=== PATIENT | female | born 1970 | race Caucasian/White ===

== ENCOUNTER 2018-02-07 12:59 | Inpatient (IN) | payer OTHER ==
[2018-02-07] MEDS ORDERED: SODIUM CHLORIDE 1,000 ML IV STA (14:02)
[2018-02-07] MEDS ORDERED: ONDANSETRON 4 MG/2 ML VIAL IVPUSH ONE (14:02)
--- NOTE | 2018-02-07 14:04 | PDOC ---
History of Present Illness - General Chief Complaint: Pain Stated Complaint: ABD PAIN Time Seen by Provider: 02/07/18 13:44 - History of Present Illness Initial Comments: 02/07/18 14:31 The patient is a 47 year old female with a history of GERD s/p cholecystecomy who presents for evaluation of abdominal pain. The patient reports a 2 day history of worsening RLQ throbbing abdominal pain prompting her presentation to the ED for evaluation. She notes some associated nausea, but denies any vomiting. She notes that her LMP was 01/26/18. She denies similar symptoms in the past and otherwise denies fevers, chills, SOB, chest pain, vomiting, vaginal bleeding, vaginal discharge, or changes with urination or bowel movements. Past History - Past Medical History Allergies/Adverse Reactions: Allergies Allergy/AdvReac Type Severity Reaction Status Date / Time No Known Allergies Allergy Verified 02/07/18 13:17 Home Medications: Ambulatory Orders Omeprazole 20 mg PO DAILY 02/07/18 COPD: No - Surgical History Cholecystectomy: Yes - Suicide/Smoking/Psychosocial Hx Smoking History: Smoker current status UNK Information on smoking cessation initiated: No Hx Alcohol Use: No Drug/Substance Use Hx: No Substance Use Type: None Review of Systems - Review of Systems Comments:: 02/07/18 14:33 Constitutional: No fevers, chills, fatigue, malaise HEENT: No Rhinorrhea, nasal congestion, visual changes Cardiovascular: No chest pain, syncope, palpitations, lightheadedness Respiratory: No Cough, SOB, Hemoptysis, Gastrointestinal: Abdominal pain, Nausea. No Vomiting, Constipation, Diarrhea, Melena Genitourinary: No Dysuria, Frequency, Urgency, Hesitancy, Hematuria, Flank pain Musculoskeletal: No Myalgia, arthralgia Skin: No rashes, itching, bruising, pallor Neurologic: No Headache, Dizziness, Numbness, Weakness, or Tingling Psychiatric: No Hallucinations. No SI or HI *Physical Exam - Vital Signs Last Vital Signs Temp Pulse Resp BP Pulse Ox 98 F 73 18 108/73 99 02/07/18 13:15 02/07/18 13:15 02/07/18 13:15 02/07/18 13:15 02/07/18 13:15 - Physical Exam Comments: 02/07/18 14:34 General Appearance: Nourished. No Apparent Distress HEENT: EOMI, PAULA. No Pharyngeal Erythema, Tonsillar Exudate, Tonsillar Erythema Neck: No Cervical Lymphadenopathy Respiratory/Chest: Lungs Clear, Normal Breath Sounds. No Crackles, Rales, Rhonchi, Wheezing Cardiovascular: Regular Rhythm, Regular Rate. No Murmur, Gallops, Rubs Gastrointestinal/Abdominal: Normal Bowel Sounds, Soft. Tenderness to palpation of the right lower quadrant. No Guarding, Rebound, Musculoskeletal: No CVA Tenderness Extremity: Normal Capillary Refill Integumentary: Normal Color, Dry, Warm Neurologic: Fully Oriented, Alert, Normal Mood/Affect, Normal Response, ED Treatment Course - LABORATORY CBC & Chemistry Diagram: 02/09/18 06:30 02/09/18 06:30 Medical Decision Making - Medical Decision Making 02/07/18 14:34 The patient is a 47 year old female with a history of GERD s/p cholecystecomy who presents for evaluation of abdominal pain. Differential includes but is not limited to: UTI, Pyelonephritis, Appendicitis, Gastroenteritis, infectious, metabolic derangement. Given the patient's history and physical exam, we will obtain a cbc, cmp, lipase, ua, urine cultures, and ct abdomen/pelvis to evaluate for possible etiologies. We will treat with iv fluids and zofran in the meantime and continue to monitor and reassess. 02/07/18 19:28 CBC, cmp, ua are unremarkable. CT abdomen pelvis demonstrates dilation in the common bile duct to 13mm as read by our radiologist. We discussed the case with GI with one of Dr. Fung's partner's who states that given the patient' s clinical presentation and continued pain, it is possible the patient has a choledocholethiasis and requires MRCP/ERCP for further evaluation and should be monitored in the hospital. We discussed the plan with the patient who agrees with admission. 02/07/18 19:49 We discussed the case with the hospitalist team who accepted the patient for admission. *DC/Admit/Observation/Transfer Diagnosis at time of Disposition: Choledocholithiasis - Discharge Dispostion Condition at time of disposition: Stable Admit: Yes - Referrals - Patient Instructions - Post Discharge Activity
[2018-02-07] MEDS ORDERED: ONDANSETRON 4 MG/2 ML VIAL ONE (14:25)
[2018-02-07 14:27] LABS: URINE APPEARANCE CLEAR; URINE BILIRUBIN NEGATIVE (<2.0 mg/dL); URINE BLOOD NEGATIVE (NEGATIVE); URINE COLOR LTYELLOW; URINE GLUCOSE (UA) NEGATIVE (NEGATIVE); URINE KETONE NEGATIVE (NEGATIVE); URINE LEUK ESTERASE NEGATIVE (NEGATIVE); URINE NITRITE NEGATIVE (NEGATIVE); URINE PROTEIN NEGATIVE (NEGATIVE); URINE UROBILINOGEN NEGATIVE mg/dL (0.2-1.0)
[2018-02-07] MEDS ORDERED: morphine CARPU-JECT 4 MG/1 ML DISP.SYRIN IVPUSH ONE ×3 (14:41→20:05)
[2018-02-07] MEDS ORDERED: MORPHINE SULFATE 10 MG/1 ML *VIAL ONE ×2 (14:46→15:55)
[2018-02-07 15:08] LABS: BASO % 0.4 % (0-2.0); EOS % 1.2 % (0-4.5); HEMATOCRIT 36.4 % (32.4-45.2); HEMOGLOBIN 12.4 GM/dL (10.7-15.3); LYMPH % 30.2 % (8-40); MCH 29.4 pg (25.7-33.7); MCHC 34.2 g/dl (32.0-36.0); MEAN PLT VOLUME 8.5 fl (7.5-11.1); MONO % 8.6 % (3.8-10.2); NEUT % 59.6 % (42.8-82.8); PLATELET COUNT 304 K/MM3 (134-434); RBC 4.23 M/mm3 (3.60-5.2); RDW 13.3 % (11.6-15.6)
--- NOTE | 2018-02-07 15:36 | PDOC ---
Attending Attestation - Resident Resident Name: JessicaGerhard - ED Attending Attestation I have performed the following: I have examined & evaluated the patient, The case was reviewed & discussed with the resident, I agree w/resident's findings & plan, Exceptions are as noted - HPI HPI: 02/07/18 15:40 47-year-old female with past medical history of cholecystectomy, gastritis presents with right lower quadrant pain for 2 days. Patient reports feeling tactile fevers, nausea and right lower quadrant pain. Denies vaginal bleeding. Denies dysuria. - Physicial Exam PE: 02/07/18 15:42 GENERAL: Awake, alert, and fully oriented, in no acute distress. HEAD: No signs of trauma EYES: PERRLA, EOMI, sclera anicteric, conjunctiva clear ENT: Auricles normal inspection, hearing grossly normal, nares patent NECK: Normal ROM, supple ABDOMEN: Soft. TTP RLQ. Positive McBurney's No guarding, no rebound. No masses EXTREMITIES: Normal range of motion, no edema. NEUROLOGICAL: Cranial nerves II through XII grossly intact. Normal speech, SKIN: Warm, Dry, normal turgor, no rashes or lesions noted. - Medical Decision Making 02/07/18 15:41 Vital Signs Temp Pulse Resp BP Pulse Ox 98 F 73 18 108/73 99 02/07/18 13:15 02/07/18 13:15 02/07/18 13:15 02/07/18 13:15 02/07/18 13:15 I suspect the patient will need to rule out for appendicitis. Labs, urinalysis, pain control and CAT scan abdomen pelvis. 02/07/18 18:09 CBC, BMP 02/07/18 14:30 02/07/18 14:30 CMP Sodium 140 mmol/L (136-145) 02/07/18 14:30 Potassium 4.2 mmol/L (3.5-5.1) 02/07/18 14:30 Chloride 106 mmol/L (98-107) 02/07/18 14:30 Carbon Dioxide 29 mmol/L (21-32) 02/07/18 14:30 Anion Gap 5 (8-16) L 02/07/18 14:30 BUN 14 mg/dL (7-18) 02/07/18 14:30 Creatinine 0.6 mg/dL (0.55-1.02) 02/07/18 14:30 Creat Clearance w eGFR > 60 (>60) 02/07/18 14:30 Random Glucose 96 mg/dL (74-106) 02/07/18 14:30 Calcium 8.7 mg/dL (8.5-10.1) 02/07/18 14:30 Total Bilirubin 0.2 mg/dL (0.2-1.0) 02/07/18 14:30 AST 21 U/L (15-37) 02/07/18 14:30 ALT 50 U/L (12-78) 02/07/18 14:30 Alkaline Phosphatase 101 U/L (45-117) 02/07/18 14:30 Total Protein 7.6 g/dl (6.4-8.2) 02/07/18 14:30 Albumin 3.5 g/dl (3.4-5.0) 02/07/18 14:30 Lipase 145 U/L (73-393) 02/07/18 14:30 Urine Test Results Urine Color Ltyellow 02/07/18 14:11 Urine Appearance Clear 02/07/18 14:11 Urine pH 7.0 (5.0-8.0) 02/07/18 14:11 Ur Specific [place] 1.015 (1.001-1.035) 02/07/18 14:11 Urine Protein Negative (NEGATIVE) 02/07/18 14:11 Urine Glucose (UA) Negative (NEGATIVE) 02/07/18 14:11 Urine Ketones Negative (NEGATIVE) 02/07/18 14:11 Urine Blood Negative (NEGATIVE) 02/07/18 14:11 Urine Nitrite Negative (NEGATIVE) 02/07/18 14:11 Urine Bilirubin Negative (<2.0 mg/dL) 02/07/18 14:11 Ur Leukocyte Esterase Negative (NEGATIVE) 02/07/18 14:11 CT scan demonstrates dilitation of the CBD. Will need to consult GI regarding these findings. Given lower abdominal pain, will obtain transvaginal ultrasound, pain control and reassess. Dr. Lopez had spoken with a GI physician, who recommends further evaluation for CBD dilitation.
[2018-02-07 16:04] LABS: ALBUMIN 3.5 g/dl (3.4-5.0); ALK PHOS 101 U/L (45-117); ANION GAP 5 (8-16); BILIRUBIN,TOTAL 0.2 mg/dL (0.2-1.0); BLOOD UREA NITROGEN 14 mg/dL (7-18); CALCIUM 8.7 mg/dL (8.5-10.1); CHLORIDE 106 mmol/L (98-107); CO2 29 mmol/L (21-32); CREATININE 0.6 mg/dL (0.55-1.02); GLUCOSE,RANDOM 96 mg/dL (74-106); LIPASE 145 U/L (73-393); POTASSIUM 4.2 mmol/L (3.5-5.1); SGOT/AST 21 U/L (15-37); SGPT/ALT 50 U/L (12-78); SODIUM 140 mmol/L (136-145); TOT PROT 7.6 g/dl (6.4-8.2)
[2018-02-07] MEDS ORDERED: morphine SULFATE 4 MG/ML VIAL ONE (20:06)
[2018-02-07] MEDS ORDERED: morphine SULFATE 4 MG/ML VIAL IVPUSH PRN ×2 (21:14→22:05)
[2018-02-07] MEDS ORDERED: ONDANSETRON 4 MG/2 ML VIAL IVPUSH PRN (21:19)
--- NOTE | 2018-02-07 21:33 | HP ---
CHIEF COMPLAINT: Abdominal Pain PCP: None HISTORY OF PRESENT ILLNESS: 47yo obese Slovak speaking F with PMhx of cholecystectomy +20yrs ago who presents with 1 day of constant abdominal pain. The pain started in the RLQ but has now migrated to the RUQ. She attests to months of post-prandial colicky RUQ pain but thought it was GERD, but now the pain is constant. Assoc w/ nausea, vomiting. She denies fevers, chills, CP, SOB, jaundice. Denies diarrhea, constipation. In the ER, the patient was afebrile, VSS. CT abdomen shows dilated CBD 1.3cm. Labs were essentially wnl, no leukocytosis and no transaminitis or hyperbili. Lipase was negative. She received morphine and zofran with mild relief. Recent Travel: Denies PAST MEDICAL HISTORY: GERD PAST SURGICAL HISTORY: Cholecystectomy Social History: Smoking: Denies Alcohol: Denies Drugs: Denies Allergies: No Known Allergies Allergy (Verified 02/07/18 13:17) HOME MEDICATIONS: Home Medications Medication Instructions Recorded Omeprazole 20 mg PO DAILY 02/07/18 REVIEW OF SYSTEMS CONSTITUTIONAL: Absent: fever, chills, diaphoresis, generalized weakness, malaise, loss of appetite, weight change HEENT: Absent: rhinorrhea, nasal congestion, throat pain, throat swelling, difficulty swallowing, mouth swelling, ear pain, eye pain, visual changes CARDIOVASCULAR: Absent: chest pain, syncope, palpitations, irregular heart rate , lightheadedness, peripheral edema RESPIRATORY: Absent: cough, shortness of breath, dyspnea with exertion, orthopnea, wheezing, stridor, hemoptysis GASTROINTESTINAL: +abdominal pain, +abdominal distension, +nausea. Absent: diarrhea, constipation, melena, hematochezia GENITOURINARY: Absent: dysuria, frequency, urgency, hesitancy, hematuria, flank pain, genital pain MUSCULOSKELETAL: Absent: myalgia, arthralgia, joint swelling, back pain, neck pain SKIN: Absent: rash, itching, pallor HEMATOLOGIC/IMMUNOLOGIC: Absent: easy bleeding, easy bruising, lymphadenopathy, frequent infections ENDOCRINE:Absent: unexplained weight gain, unexplained weight loss, heat intolerance, cold intolerance NEUROLOGIC: Absent: headache, focal weakness or paresthesias, dizziness, unsteady gait, seizure, mental status changes, bladder or bowel incontinence PSYCHIATRIC: Absent: anxiety, depression, suicidal or homicidal ideation, hallucinations. PHYSICAL EXAMINATION Vital Signs Period Temp Pulse Resp BP Sys/Green Pulse Ox Last 24 Hr 97.5 F-98.2 F 72-79 17-18 103-136/64-86 98-99 GEN: AAOx3, in mild distress, lying down HEENT: PERRLA, EOMi, no scleral icterus CV: S1, S2, RRR LUNG: CTABL ABD: +Guarding, tender to palpation in RUQ, normoactive BS MSK: No edema, no erythema NEURO: CN 2-12 intact, no msk or sensation deficits ASSESSMENT/PLAN: 47yo obese Slovak speaking F with PMhx of cholecystectomy +20yrs ago who presents with 1 day of constant abd pain, found to have dilated CBD # RUQ Pain -- It is possible the patient has choledocholithiasis causing pain and dilated CBD. Although LFTs do not appear obstructive, suspicion is still high. Pancreatitis less likely as lipase is neg. GI (Dr Fung's team) was contacted in the ER and agree with admission and possible ERCP/MRCP. NPO after midnight. IVF. Pre-op labs ordered including T&S, Coag. Preop CXR and EKG. IV Morphine for pain and IV Zofran for nausea. Continue to monitor LFTs # GERD -- Continue PPI # FEN/PPX -- NPO, IVF. SCDs. PT ordered # Dispo -- Admit to med/surg Case d/w Dr Trammell & Dr Harrison Morning team to take over in AM Nathaniel Garzon MD - PGY1 [employer] Visit type - Emergency Visit Emergency Visit: Yes ED Registration Date: 02/07/18 Care time: The patient presented to the Emergency Department on the above date and was hospitalized for further evaluation of their emergent condition. - New Patient This patient is new to me today: Yes Date on this admission: 02/08/18 - Critical Care Critical Care patient: No Hospitalist Screening - Colonoscopy Questionnaire Colonoscopy Questionnaire: Colonoscopy Questionnaire - Patient: 50 - 75 years old and never had a screening colonoscopy: Unknown History of colon or rectal polyps, or CA: Unknown History of IBD, Crohn's disease or UC: Unknown History of abdominal radiation therapy as a child: Unknown - Relative: 1 with colon or rectal CA, or polyps at age 60 or younger: Unknown Colon or rectal CA diagnosed at age 45 or younger: Unknown Multiple relatives with colon or rectal CA: Unknown - Outcome: Screening Result: Negative Screen
--- NOTE | 2018-02-07 21:58 | PN ---
Teaching Attending Note Name of Resident: Nathaniel Garzon ATTENDING PHYSICIAN STATEMENT I saw and evaluated the patient. I reviewed the resident's note and discussed the case with the resident. I agree with the resident's findings and plan as documented. SUBJECTIVE: 47 yo f with pmhx. of GERD and choleycystectomy (25 years ago), who presents with abdominal pain located in the right upper quadrant. States pain started today and has had colicky pain for several weeks. No chest pain or pressure. No nausea currently. No vomiting or diarrhea. OBJECTIVE: Physical: VS: Vital Signs Period Temp Pulse Resp BP Sys/Green Pulse Ox Last 24 Hr 97.5 F-98.2 F 72-79 17-18 103-136/64-86 98-99 GEN: NAD, resting in bed, AA0x3 HEENT: NCAT, PERRL, Throat without erythema or exudates CARD: RRR S1, S2 RESP: CTAB ABD: BSx4, TTP RUQ EXT: - C/C/E CBCD WBC 7.0 K/mm3 (4.0-10.0) 02/07/18 14:30 RBC 4.23 M/mm3 (3.60-5.2) 02/07/18 14:30 Hgb 12.4 GM/dL (10.7-15.3) 02/07/18 14:30 Hct 36.4 % (32.4-45.2) 02/07/18 14:30 MCV 86.0 fl (80-96) 02/07/18 14:30 MCHC 34.2 g/dl (32.0-36.0) 02/07/18 14:30 RDW 13.3 % (11.6-15.6) 02/07/18 14:30 Plt Count 304 K/MM3 (134-434) 02/07/18 14:30 MPV 8.5 fl (7.5-11.1) 02/07/18 14:30 CMP Sodium 140 mmol/L (136-145) 02/07/18 14:30 Potassium 4.2 mmol/L (3.5-5.1) 02/07/18 14:30 Chloride 106 mmol/L (98-107) 02/07/18 14:30 Carbon Dioxide 29 mmol/L (21-32) 02/07/18 14:30 Anion Gap 5 (8-16) L 02/07/18 14:30 BUN 14 mg/dL (7-18) 02/07/18 14:30 Creatinine 0.6 mg/dL (0.55-1.02) 02/07/18 14:30 Creat Clearance w eGFR > 60 (>60) 02/07/18 14:30 Random Glucose 96 mg/dL (74-106) 02/07/18 14:30 Calcium 8.7 mg/dL (8.5-10.1) 02/07/18 14:30 Total Bilirubin 0.2 mg/dL (0.2-1.0) 02/07/18 14:30 AST 21 U/L (15-37) 02/07/18 14:30 ALT 50 U/L (12-78) 02/07/18 14:30 Alkaline Phosphatase 101 U/L (45-117) 02/07/18 14:30 Total Protein 7.6 g/dl (6.4-8.2) 02/07/18 14:30 Albumin 3.5 g/dl (3.4-5.0) 02/07/18 14:30 EKG- PENDING ORDERED Transvaginal US- Negative ABD CT: CBD 13 mm, intrahepatic duct dilitation ASSESSMENT AND PLAN: 47 f with hx. of choleycystectomy and GERD who presents with right upper abdominal pain and vomiting, being admitted for possible choledocholithiasis 1.) Choledocholithiasis - NPO - MRCP in AM - CBC, Type & Screen - Coags - GI consulted 2.) GERD - PPI 3.) Dvt Ppx - SCDs Place in [facility]-Sx
[2018-02-08 06:23] LABS: HEMATOCRIT 35.3 % (32.4-45.2); HEMOGLOBIN 12.2 GM/dL (10.7-15.3); MCH 29.6 pg (25.7-33.7); MCHC 34.6 g/dl (32.0-36.0); MEAN CELL VOLUME 85.5 fl (80-96); MEAN PLT VOLUME 8.2 fl (7.5-11.1); PLATELET COUNT 323 K/MM3 (134-434); RBC 4.13 M/mm3 (3.60-5.2); RDW 13.5 % (11.6-15.6); WHITE BLOOD COUNT 7.4 K/mm3 (4.0-10.0)
[2018-02-08 06:35] LABS: INR 1.12 (0.82-1.09); PROTHROMBIN TIME (PATIENT) 12.6 SEC (9.98-11.88)
[2018-02-08 06:37] LABS: ACTIVATED PTT 25.7 SECONDS (26.9-34.4)
[2018-02-08 06:47] LABS: ALBUMIN 3.4 g/dl (3.4-5.0); ANION GAP 9 (8-16); BILIRUBIN,TOTAL 0.4 mg/dL (0.2-1.0); BLOOD UREA NITROGEN 11 mg/dL (7-18); CALCIUM 8.6 mg/dL (8.5-10.1); CHLORIDE 106 mmol/L (98-107); CO2 28 mmol/L (21-32); CREATININE 0.6 mg/dL (0.55-1.02); GLUCOSE,RANDOM 97 mg/dL (74-106); MAGNESIUM 2.4 mg/dL (1.8-2.4); PHOSPHOROUS 4.6 mg/dL (2.5-4.9); POTASSIUM 4.1 mmol/L (3.5-5.1); SGOT/AST 92 U/L (15-37); SGPT/ALT 162 U/L (12-78); SODIUM 143 mmol/L (136-145); TOT PROT 7.3 g/dl (6.4-8.2)
[2018-02-08 06:48] LABS: ALK PHOS 131 U/L (45-117)
[2018-02-08] MEDS ORDERED: morphine SULFATE 4 MG/ML VIAL IVPUSH PRN (08:24)
[2018-02-08] MEDS: AMPICILLIN NA/SULBACTAM NA 3 GM in SODIUM CHLORIDE 100 ML IVPB SCH ×3 (10:30→23:46)
[2018-02-08] MEDS: PANTOPRAZOLE 20 MG TABLET (FP) PO SCH (10:35)
--- NOTE | 2018-02-08 10:48 | CON.GI ---
Consult Consult Specialty:: GI Reason for Consultation:: RUQ pain, dil CBD - History of Present Illness History of Present Illness: chart reviewed. Events noted Per initial intake: 47yo obese French speaking F with PMhx of cholecystectomy + 20yrs ago who presents with 1 day of constant abdominal pain. The pain started in the RLQ but has now migrated to the RUQ. She attests to months of post- prandial colicky RUQ pain but thought it was GERD, but now the pain is constant. Assoc w/ nausea, vomiting. She denies fevers, chills, CP, SOB, jaundice. Denies diarrhea, constipation. In the ER, the patient was afebrile, VSS. CT abdomen shows dilated CBD 1.3cm. Labs were essentially wnl, no leukocytosis and no transaminitis or hyperbili. Lipase was negative. She received morphine and zofran with mild relief. At the time of this encounter: c/o generalized abdominal, mild pain w/o nausea, or vomiting, changes in bms. Denies fever, chills, hematemesis, dysphagia, odynophagia, jaundice, altered bowels, pencil-thin, or ribbon-like stools. Denies melena, hematochezia, weight loss. Labs this am showed mild hepatitis with mild ALP elevation. Normal bilirubin - History Source History Provided By: Patient, Medical Record - Alcohol/Substance Use Hx Alcohol Use: No - Smoking History Smoking history: Smoker current status UNK Home Medications - Allergies Allergies/Adverse Reactions: Allergies Allergy/AdvReac Type Severity Reaction Status Date / Time No Known Allergies Allergy Verified 02/07/18 13:17 - Home Medications Home Medications: Ambulatory Orders Omeprazole 20 mg PO DAILY 02/07/18 Family Disease History - Family Disease History Family History: Unremarkable Review of Systems Findings/Remarks: as per HPI, H&P Physical Exam-GI Vital Signs: Vital Signs Temperature 98.8 F 02/08/18 06:52 Pulse Rate 63 02/08/18 06:52 Respiratory Rate 18 02/08/18 06:52 Blood Pressure 117/56 02/08/18 06:52 O2 Sat by Pulse Oximetry (%) 95 02/08/18 06:52 Constitutional: Yes: Well Nourished, No Distress, Calm Eyes: Yes: Conjunctiva Clear HENT: Yes: Atraumatic Neck: Yes: Supple Cardiovascular: Yes: Regular Rate and Rhythm Respiratory: Yes: Regular Gastrointestinal Inspection: No: Ascites, Distention ...Auscultate: Yes: Normoactive Bowel Sounds ...Palpate: Yes: Soft, Tenderness (generalied, mild). No: Mass, Tenderness, Epigastium, Tenderness, Rebound Neurological: Yes: Alert, Oriented Labs: CBC, BMP 02/08/18 05:55 02/08/18 05:55 INR, PTT INR 1.12 (0.82-1.09) 02/08/18 05:55 Laboratory Last Values WBC 7.4 K/mm3 (4.0-10.0) 02/08/18 05:55 RBC 4.13 M/mm3 (3.60-5.2) 02/08/18 05:55 Hgb 12.2 GM/dL (10.7-15.3) 02/08/18 05:55 Hct 35.3 % (32.4-45.2) 02/08/18 05:55 MCV 85.5 fl (80-96) 02/08/18 05:55 MCH 29.6 pg (25.7-33.7) 02/08/18 05:55 MCHC 34.6 g/dl (32.0-36.0) 02/08/18 05:55 RDW 13.5 % (11.6-15.6) 02/08/18 05:55 Plt Count 323 K/MM3 (134-434) 02/08/18 05:55 MPV 8.2 fl (7.5-11.1) 02/08/18 05:55 Neutrophils % 59.6 % (42.8-82.8) 02/07/18 14:30 Lymphocytes % 30.2 % (8-40) 02/07/18 14:30 Monocytes % 8.6 % (3.8-10.2) 02/07/18 14:30 Eosinophils % 1.2 % (0-4.5) 02/07/18 14:30 Basophils % 0.4 % (0-2.0) 02/07/18 14:30 PT with INR 12.60 SEC (9.98-11.88) H 02/08/18 05:55 INR 1.12 (0.82-1.09) 02/08/18 05:55 PTT (Actin FS) 25.7 SECONDS (26.9-34.4) L 02/08/18 05:55 Sodium 143 mmol/L (136-145) 02/08/18 05:55 Potassium 4.1 mmol/L (3.5-5.1) 02/08/18 05:55 Chloride 106 mmol/L (98-107) 02/08/18 05:55 Carbon Dioxide 28 mmol/L (21-32) 02/08/18 05:55 Anion Gap 9 (8-16) 02/08/18 05:55 BUN 11 mg/dL (7-18) 02/08/18 05:55 Creatinine 0.6 mg/dL (0.55-1.02) 02/08/18 05:55 Creat Clearance w eGFR > 60 (>60) 02/08/18 05:55 Random Glucose 97 mg/dL (74-106) 02/08/18 05:55 Calcium 8.6 mg/dL (8.5-10.1) 02/08/18 05:55 Phosphorus 4.6 mg/dL (2.5-4.9) 02/08/18 05:55 Magnesium 2.4 mg/dL (1.8-2.4) 02/08/18 05:55 Total Bilirubin 0.4 mg/dL (0.2-1.0) D 02/08/18 05:55 AST 92 U/L (15-37) H 02/08/18 05:55 ALT 162 U/L (12-78) H 02/08/18 05:55 Alkaline Phosphatase 131 U/L (45-117) H 02/08/18 05:55 Total Protein 7.3 g/dl (6.4-8.2) 02/08/18 05:55 Albumin 3.4 g/dl (3.4-5.0) 02/08/18 05:55 Lipase 145 U/L (73-393) 02/07/18 14:30 Urine Color Ltyellow 02/07/18 14:11 Urine Appearance Clear 02/07/18 14:11 Urine pH 7.0 (5.0-8.0) 02/07/18 14:11 Ur Specific [place] 1.015 (1.001-1.035) 02/07/18 14:11 Urine Protein Negative (NEGATIVE) 02/07/18 14:11 Urine Glucose (UA) Negative (NEGATIVE) 02/07/18 14:11 Urine Ketones Negative (NEGATIVE) 02/07/18 14:11 Urine Blood Negative (NEGATIVE) 02/07/18 14:11 Urine Nitrite Negative (NEGATIVE) 02/07/18 14:11 Urine Bilirubin Negative (<2.0 mg/dL) 02/07/18 14:11 Urine Urobilinogen Negative mg/dL (0.2-1.0) 02/07/18 14:11 Ur Leukocyte Esterase Negative (NEGATIVE) 02/07/18 14:11 Urine HCG, Qual Negative 02/07/18 14:11 Blood Type A POSITIVE 02/08/18 05:55 Antibody Screen Negative 02/08/18 05:55 Imaging - Results Cat Scan: Report Reviewed Ultrasound: Report Reviewed Problem List - Problems (1) Dilated cbd, acquired Code(s): K83.8 - OTHER SPECIFIED DISEASES OF BILIARY TRACT (2) Abnormal liver enzymes Code(s): R74.8 - ABNORMAL LEVELS OF OTHER SERUM ENZYMES (3) Abdominal pain Code(s): R10.9 - UNSPECIFIED ABDOMINAL PAIN Assessment/Plan No signs of cholangitis, or overt cholestasis r/o coledocolithiasis CBD dil can be physiologic s/p cholecystectomy MRCP NPO for now trend liver enzymens
--- NOTE | 2018-02-08 14:44 | PN ---
Teaching Attending Note Name of Resident: Amber Fowler ATTENDING PHYSICIAN STATEMENT I saw and evaluated the patient. I reviewed the resident's note and discussed the case with the resident. I agree with the resident's findings and plan as documented with exceptions below. SUBJECTIVE: patient seen and examined. abdominal pain better currently, no nausea, vomiting in the Ed. no fevers/chills. LMP 3, pain unrelated to menstrual cycle. OBJECTIVE: Vital Signs Period Temp Pulse Resp BP Sys/Green Pulse Ox Last 24 Hr 97.5 F-98.8 F 63-79 16-20 103-136/56-86 95-100 Intake & Output 02/05/18 02/06/18 02/07/18 02/08/18 23:59 23:59 23:59 23:59 Weight 185 lb general: lying in bed in no acute distress Abdomen: soft, no RLQ or RUQ tenderness elicited currently, no voluntary or involuntary guarding or rigidity, positive bowel sounds extremities: no edema Home Medication List Medication Instructions Recorded Confirmed Type Omeprazole 20 mg PO DAILY 02/07/18 02/07/18 History Active Medications Generic Name Dose Route Start Last Admin Trade Name Freq PRN Reason Stop Dose Admin Ampicillin Sodium/Sulbactam 100 mls @ 200 mls/hr 02/08/18 09:00 02/08/18 10: 30 Sodium 3 gm/ Sodium Chloride IVPB 200 mls/hr Q6H-IV JOIE Administration Metronidazole 500 mg in 100 mls @ 100 mls/hr 02/08/18 10:00 02/08/18 11:08 Flagyl 500mg Premixed Ivpb - IVPB 100 mls/hr Q8H-IV JOIE Administration Morphine Sulfate 2 mg 02/08/18 08:24 Morphine Sulfate IVPUSH Q6H PRN PAIN LEVEL 7 - 10 Ondansetron HCl 4 mg 02/07/18 21:19 02/07/18 21:40 Zofran Injection IVPUSH 4 mg Q8H PRN Administration NAUSEA Pantoprazole Sodium 20 mg 02/08/18 10:00 02/08/18 10:35 Protonix - PO Not Given DAILY JOIE Laboratory Results - last 24 hr 02/07/18 02/07/18 02/08/18 14:30 14:30 05:55 WBC 7.0 7.4 RBC 4.23 4.13 Hgb 12.4 12.2 Hct 36.4 35.3 MCV 86.0 85.5 MCH 29.4 29.6 MCHC 34.2 34.6 RDW 13.3 13.5 Plt Count 304 323 MPV 8.5 8.2 Neutrophils % 59.6 Lymphocytes % 30.2 Monocytes % 8.6 Eosinophils % 1.2 Basophils % 0.4 PT with INR INR PTT (Actin FS) Sodium 140 Potassium 4.2 Chloride 106 Carbon Dioxide 29 Anion Gap 5 L BUN 14 Creatinine 0.6 Creat Clearance w eGFR > 60 Random Glucose 96 Calcium 8.7 Phosphorus Magnesium Total Bilirubin 0.2 AST 21 ALT 50 Alkaline Phosphatase 101 Total Protein 7.6 Albumin 3.5 Lipase 145 Blood Type Antibody Screen 02/08/18 02/08/18 02/08/18 05:55 05:55 05:55 WBC RBC Hgb Hct MCV MCH MCHC RDW Plt Count MPV Neutrophils % Lymphocytes % Monocytes % Eosinophils % Basophils % PT with INR 12.60 H INR 1.12 PTT (Actin FS) 25.7 L Sodium 143 Potassium 4.1 Chloride 106 Carbon Dioxide 28 Anion Gap 9 BUN 11 Creatinine 0.6 Creat Clearance w eGFR > 60 Random Glucose 97 Calcium 8.6 Phosphorus 4.6 Magnesium 2.4 Total Bilirubin 0.4 D AST 92 H ALT 162 H Alkaline Phosphatase 131 H Total Protein 7.3 Albumin 3.4 Lipase Blood Type A POSITIVE Antibody Screen Negative CT A/P results reviewed Transvaginal US results reviewed ASSESSMENT AND PLAN: 47 yof s/p CCY > 20 years ago here with RLQ pain later in RUQ, found with dilated CBD -Abdominal pain/dilated CBD, r/o choledocholithiasis or abnormality ( appendicitis ruled out on CT) -Obesity Plan: NPO for now, MRCP. Emperic blood cultures and unasyn/flagyl for now. GI input appreciated. dvtppx if prolonged stay and non ambulatory GIppx dispo pending MRCP and further clinical course. Plan discussed with patient and daughter at bedside in detail, all questions answered.
--- NOTE | 2018-02-08 15:37 | EKG ---
Test Reason : Blood Pressure : / mmHG Vent. Rate : 059 BPM Atrial Rate : 059 BPM P-R Int : 156 ms QRS Dur : 076 ms QT Int : 414 ms P-R-T Axes : 039 006 002 degrees QTc Int : 409 ms SINUS BRADYCARDIA OTHERWISE NORMAL ECG NO PREVIOUS ECGS AVAILABLE Confirmed by DANIELA HOLCOMB, SUZANNA ([id number]) on 02/08/2018 3:36:49 PM Referred By: Confirmed By:SUZANNA SUAREZ MD
[2018-02-08 16:08] VITALS: BMI 33.5
--- NOTE | 2018-02-08 18:05 | PN ---
Physical Exam: SUBJECTIVE: Patient seen and examined in AM. C/o RUQ pain; no fever, chills, n/v , OBJECTIVE: Vital Signs Period Temp Pulse Resp BP Sys/Green Pulse Ox Last 24 Hr 97.5 F-98.8 F 62-74 16-20 100-136/56-86 95-100 GENERAL: aaox3, nad, lying comfortably in bed LUNGS: CTAB, no wheezing or rales appreciated HEART: rrr, normal s1/s2, no m/r/g ABDOMEN: soft, non-distended, minimal ttp RUQ, no guarding or rebound tenderness , +bowel sounds, +well-healed midline ventral scar EXTREMITIES: 2+ DP pulses, wwp, no edema CBC, BMP 02/08/18 05:55 02/08/18 05:55 Hepatic Panel Total Bilirubin 0.4 mg/dL (0.2-1.0) D 02/08/18 05:55 AST 92 U/L (15-37) H 02/08/18 05:55 ALT 162 U/L (12-78) H 02/08/18 05:55 Alkaline Phosphatase 131 U/L (45-117) H 02/08/18 05:55 Albumin 3.4 g/dl (3.4-5.0) 02/08/18 05:55 Microbiology 02/07/18 14:11 Urine - Urine Clean Catch Urine Culture - Final NO GROWTH OBTAINED Active Medications Ampicillin Sodium/Sulbactam (Sodium 3 gm/ Sodium Chloride) 100 mls @ 200 mls/ hr IVPB Q6H-IV JOIE Last Admin: 02/08/18 14:59 Dose: 200 mls/hr Metronidazole (Flagyl 500mg Premixed Ivpb -) 500 mg in 100 mls @ 100 mls/hr IVPB Q8H-IV JOIE Last Admin: 02/08/18 11:08 Dose: 100 mls/hr Morphine Sulfate (Morphine Sulfate) 2 mg IVPUSH Q6H PRN PRN Reason: PAIN LEVEL 7 - 10 Ondansetron HCl (Zofran Injection) 4 mg IVPUSH Q8H PRN PRN Reason: NAUSEA Last Admin: 02/07/18 21:40 Dose: 4 mg Pantoprazole Sodium (Protonix -) 20 mg PO DAILY JOIE Last Admin: 02/08/18 10:35 Dose: Not Given ASSESSMENT/PLAN: 47yo Chinese speaking woman with remote CCY (20y ago) and GERD who p/w 1x abdominal pain and found to have dilated CBD on CT A/P. # RUQ pain with dilated CBD, r/o choledocholithiasis -GI consulted -NPO for now -MRCP -f/u Blood cultures -Unasyn/Flagyl Day 1 for empiric cholangitis coverage -c/w home PPI -Zogran PRN for nausea -Morphine PRN for pain #FEN/PPX D5NS@100cc/hr lytes wnl SCDs + EAM #PT eval # Dispo: med/surg FULL code Visit type - Emergency Visit Emergency Visit: Yes ED Registration Date: 02/07/18 Care time: The patient presented to the Emergency Department on the above date and was hospitalized for further evaluation of their emergent condition. - New Patient This patient is new to me today: Yes Date on this admission: 02/08/18 - Critical Care Critical Care patient: No
[2018-02-08] MEDS ORDERED: PT OWN MED DRAWER 7, Y5N ONE (19:36)
[2018-02-08] MEDS: DEXTROSE 5%-NORMAL SALINE 1,000 ML IV SCH (19:52)
[2018-02-09] MEDS: AMPICILLIN NA/SULBACTAM NA 3 GM in SODIUM CHLORIDE 100 ML IVPB SCH ×2 (03:00→10:00)
[2018-02-09 08:01] LABS: BASO % 0.4 % (0-2.0); HEMATOCRIT 34.6 % (32.4-45.2); HEMOGLOBIN 11.7 GM/dL (10.7-15.3); LYMPH % 40.9 % (8-40); MCH 29.2 pg (25.7-33.7); MCHC 33.8 g/dl (32.0-36.0); MEAN CELL VOLUME 86.3 fl (80-96); MEAN PLT VOLUME 8.1 fl (7.5-11.1); MONO % 9.4 % (3.8-10.2); NEUT % 48.3 % (42.8-82.8); PLATELET COUNT 292 K/MM3 (134-434); RBC 4.01 M/mm3 (3.60-5.2); RDW 13.3 % (11.6-15.6); WHITE BLOOD COUNT 6.8 K/mm3 (4.0-10.0)
[2018-02-09 08:23] LABS: ALBUMIN 3.1 g/dl (3.4-5.0); ANION GAP 5 (8-16); BILIRUBIN,DIRECT < 0.2 mg/dL (0.0-0.2); BLOOD UREA NITROGEN 15 mg/dL (7-18); CALCIUM 8.2 mg/dL (8.5-10.1); CHLORIDE 110 mmol/L (98-107); CO2 29 mmol/L (21-32); CREATININE 0.7 mg/dL (0.55-1.02); GLUCOSE,RANDOM 81 mg/dL (74-106); SGOT/AST 39 U/L (15-37); SGPT/ALT 103 U/L (12-78); SODIUM 144 mmol/L (136-145)
[2018-02-09 08:25] LABS: ALK PHOS 108 U/L (45-117); BILIRUBIN,TOTAL 0.2 mg/dL (0.2-1.0); TOT PROT 6.6 g/dl (6.4-8.2)
--- NOTE | 2018-02-09 08:29 | PN ---
Physical Exam: SUBJECTIVE: Patient seen and examined OBJECTIVE: Vital Signs Period Temp Pulse Resp BP Sys/Green Pulse Ox Last 24 Hr 97.2 F-98.5 F 60-67 18-20 91-113/40-65 98-100 GENERAL: The patient is awake, alert, and fully oriented, in no acute distress. HEAD: Normal with no signs of trauma. EYES: PERRL, extraocular movements intact, sclera anicteric, conjunctiva clear. No ptosis. ENT: Ears normal, nares patent, oropharynx clear without exudates, moist mucous membranes. NECK: Trachea midline, full range of motion, supple. LUNGS: Breath sounds equal, clear to auscultation bilaterally, no wheezes, no crackles, no accessory muscle use. HEART: Regular rate and rhythm, S1, S2 without murmur, rub or gallop. ABDOMEN: Soft, nontender, nondistended, normoactive bowel sounds, no guarding, no rebound, no hepatosplenomegaly, no masses. EXTREMITIES: 2+ pulses, warm, well-perfused, no edema. NEUROLOGICAL: Cranial nerves II through XII grossly intact. Normal speech, gait not observed. PSYCH: Normal mood, normal affect. SKIN: Warm, dry, normal turgor, no rashes or lesions noted Laboratory Results - last 24 hr 02/09/18 06:30 WBC 6.8 RBC 4.01 Hgb 11.7 Hct 34.6 MCV 86.3 MCH 29.2 MCHC 33.8 RDW 13.3 Plt Count 292 MPV 8.1 Neutrophils % 48.3 Lymphocytes % 40.9 H D Monocytes % 9.4 Eosinophils % 1.0 Basophils % 0.4 Active Medications Generic Name Dose Route Start Last Admin Trade Name Freq PRN Reason Stop Dose Admin Ampicillin Sodium/Sulbactam 100 mls @ 200 mls/hr 02/08/18 09:00 02/09/18 03: 00 Sodium 3 gm/ Sodium Chloride IVPB 200 mls/hr Q6H-IV JOIE Administration Metronidazole 500 mg in 100 mls @ 100 mls/hr 02/08/18 10:00 02/09/18 02:40 Flagyl 500mg Premixed Ivpb - IVPB 100 mls/hr Q8H-IV JOIE Administration Dextrose/Sodium Chloride 1,000 mls @ 100 mls/hr 02/08/18 18:15 02/08/18 19:52 D5-Ns - IV 100 mls/hr ASDIR JOIE Administration Morphine Sulfate 2 mg 02/08/18 08:24 Morphine Sulfate IVPUSH Q6H PRN PAIN LEVEL 7 - 10 Ondansetron HCl 4 mg 02/07/18 21:19 02/07/18 21:40 Zofran Injection IVPUSH 4 mg Q8H PRN Administration NAUSEA Pantoprazole Sodium 20 mg 02/08/18 10:00 02/08/18 10:35 Protonix - PO Not Given DAILY [facility] ASSESSMENT/PLAN:
--- NOTE | 2018-02-09 08:40 | PN ---
Teaching Attending Note Name of Resident: Amber Fowler ATTENDING PHYSICIAN STATEMENT I saw and evaluated the patient. I reviewed the resident's note and discussed the case with the resident. I agree with the resident's findings and plan as documented with exceptions below. SUBJECTIVE: Patient seen and examined. denies abdominal pain, nausea, vomiting. overall feels better. OBJECTIVE: Vital Signs Period Temp Pulse Resp BP Sys/Green Pulse Ox Last 24 Hr 97.2 F-98.5 F 60-67 18-20 91-113/40-65 98-100 Intake & Output 02/06/18 02/07/18 02/08/18 02/09/18 23:59 23:59 23:59 23:59 Intake Total 100 Balance 100 Weight 185 lb 189 lb General lying in bed in no acute distress Abdomen: soft, minimal tenderness right above right pubic bone, no Home Medication List Medication Instructions Recorded Confirmed Type Omeprazole 20 mg PO DAILY 02/07/18 02/07/18 History Active Medications Generic Name Dose Route Start Last Admin Trade Name Freq PRN Reason Stop Dose Admin Ampicillin Sodium/Sulbactam 100 mls @ 200 mls/hr 02/08/18 09:00 02/09/18 03: 00 Sodium 3 gm/ Sodium Chloride IVPB 200 mls/hr Q6H-IV JOIE Administration Metronidazole 500 mg in 100 mls @ 100 mls/hr 02/08/18 10:00 02/09/18 02:40 Flagyl 500mg Premixed Ivpb - IVPB 100 mls/hr Q8H-IV JOIE Administration Dextrose/Sodium Chloride 1,000 mls @ 100 mls/hr 02/08/18 18:15 02/08/18 19:52 D5-Ns - IV 100 mls/hr ASDIR JOIE Administration Morphine Sulfate 2 mg 02/08/18 08:24 Morphine Sulfate IVPUSH Q6H PRN PAIN LEVEL 7 - 10 Ondansetron HCl 4 mg 02/07/18 21:19 02/07/18 21:40 Zofran Injection IVPUSH 4 mg Q8H PRN Administration NAUSEA Pantoprazole Sodium 20 mg 02/08/18 10:00 02/08/18 10:35 Protonix - PO Not Given DAILY JOIE Laboratory Results - last 24 hr 02/09/18 02/09/18 06:30 06:30 WBC 6.8 RBC 4.01 Hgb 11.7 Hct 34.6 MCV 86.3 MCH 29.2 MCHC 33.8 RDW 13.3 Plt Count 292 MPV 8.1 Neutrophils % 48.3 Lymphocytes % 40.9 H D Monocytes % 9.4 Eosinophils % 1.0 Basophils % 0.4 Sodium 144 Potassium 4.0 Chloride 110 H Carbon Dioxide 29 Anion Gap 5 L BUN 15 Creatinine 0.7 Creat Clearance w eGFR > 60 Random Glucose 81 Calcium 8.2 L Total Bilirubin 0.2 D Direct Bilirubin < 0.2 AST 39 H ALT 103 H Alkaline Phosphatase 108 Total Protein 6.6 Albumin 3.1 L Microbiology 02/07/18 14:11 Urine - Urine Clean Catch Urine Culture - Final NO GROWTH OBTAINED MRCP results reviewed ASSESSMENT AND PLAN: 47 yof s/p CCY > 20 years ago here with RLQ pain later in RUQ, found with dilated CBD -Abdominal pain/dilated CBD, r/o choledocholithiasis or abnormality ( appendicitis ruled out on CT) -Obesity Plan: MRCP with no concerns, discussed with GI, low fat diet and outpatient follow up if no concerns. d/c today if tolerating diet and no concerns. outpatient LFTS in 1 week and GI follow up. Plan discussed with patient in detail, all questions answered.
[2018-02-09] MEDS: DEXTROSE 5%-NORMAL SALINE 1,000 ML IV SCH (09:56)
[2018-02-09] MEDS: PANTOPRAZOLE 20 MG TABLET (FP) PO SCH (09:59)
[2018-02-09 14:46] VITALS: BP 95/50; PULSE 67; TEMP 98.5
--- NOTE | 2018-02-09 16:45 | DS ---
Physical Exam: SUBJECTIVE: Patient seen and examined OBJECTIVE: Vital Signs Period Temp Pulse Resp BP Sys/Green Pulse Ox Last 24 Hr 97.2 F-98.5 F 60-67 18-20 91-102/40-56 98-98 PHYSICAL EXAM GENERAL: The patient is awake, alert, and fully oriented, in no acute distress. HEAD: Normal with no signs of trauma. EYES: PERRL, extraocular movements intact, sclera anicteric, conjunctiva clear. ENT: Ears normal, nares patent, oropharynx clear without exudates, moist mucous membranes. NECK: Trachea midline, full range of motion, supple. LUNGS: Breath sounds equal, clear to auscultation bilaterally, no wheezes, no crackles, no accessory muscle use. HEART: Regular rate and rhythm, S1, S2 without murmur, rub or gallop. ABDOMEN: Soft, nontender, nondistended, normoactive bowel sounds, no guarding, no rebound, no hepatosplenomegaly, no masses. EXTREMITIES: 2+ pulses, warm, well-perfused, no edema. NEUROLOGICAL: Cranial nerves II through XII grossly intact. Normal speech, gait not observed. PSYCH: Normal mood, normal affect. SKIN: Warm, dry, normal turgor, no rashes or lesions noted. LABS Laboratory Results - last 24 hr 02/09/18 02/09/18 06:30 06:30 WBC 6.8 RBC 4.01 Hgb 11.7 Hct 34.6 MCV 86.3 MCH 29.2 MCHC 33.8 RDW 13.3 Plt Count 292 MPV 8.1 Neutrophils % 48.3 Lymphocytes % 40.9 H D Monocytes % 9.4 Eosinophils % 1.0 Basophils % 0.4 Sodium 144 Potassium 4.0 Chloride 110 H Carbon Dioxide 29 Anion Gap 5 L BUN 15 Creatinine 0.7 Creat Clearance w eGFR > 60 Random Glucose 81 Calcium 8.2 L Total Bilirubin 0.2 D Direct Bilirubin < 0.2 AST 39 H ALT 103 H Alkaline Phosphatase 108 Total Protein 6.6 Albumin 3.1 L HOSPITAL COURSE: Date of Admission:02/07/18 Date of Discharge: 02/09/18 Discharge Summary Reason For Visit: COMMON BILE DUCT CALCULUS Current Active Problems Abdominal pain (Acute) Abnormal liver enzymes (Acute) Choledocholithiasis (Acute) Dilated cbd, acquired (Acute) Condition: Stable - Instructions Diet, Activity, Other Instructions: You were admitted to the hospital for abdominal pain. Imaging of your abdomen and pelvis was normal. Recommendations: -Follow a low fat diet -Resume your daily activities as tolerated Medications: -Continue your regular home medications as directed. -You can take Tylenol for your pain. Do not exceed more than 2000mg in one day. Stop if you notice worsening belly pain, jaundice or new concerns. Follow-ups: -Make an appointment to see Dr. Alcantar, Campaign Assistant, in 1-2 weeks. You should have a colonoscopy. -Make an appointment with your primary care doctor. You should have your liver function tested in 1 week. You can make an appointment to see Dr. Thomas if you don't have a primary care doctor. Please return to the Emergency Department if you have worsening abdominal pain, fever, chills, jaundice or any or concerning symptoms. En Espanol: Usted fue admitido en el hospital por dolor abdominal. Las imgenes de kay abdomen y pelvis fueron normales. Recomendaciones: -Siga sharonda dieta baja en grasas -Resume tus actividades diarias segn lo tolera Medicamentos: -Contine sunny medicamentos regulares en el hogar segn las indicaciones. -Puedes harry Tylenol por tu dolor. No exceda ms de 2000 mg en un da. Seguimientos: -Kezia sharonda dontrell para carina al Dr. Alcantar, Gastroenterlogo, en 1-2 semanas. Deber as hacerte sharonda colonoscopia -Kezia sharonda dontrell con kay mdico primaria. Debera someterse a prueba kay funcin hep mojgan en 1 semana. Puede programar sharonda dontrell para carina al Dr. Thomas si no tiene un mdico primaria. Por favor, regrese al departamento de emergencia si tiene un dolor abdominal, fiebre, ictericia, escalofros o cualquier otro o sobre los sntomas. Referrals: Lamine Thomas MD [Staff Physician] - Eriberto Alcantar MD [Staff Physician] - 1 Week Disposition: HOME - Home Medications Comprehensive Discharge Medication List: Ambulatory Orders Omeprazole 20 mg PO DAILY 02/07/18
== END 2018-02-09 18:35 | disposition home or self-care (01) ==
LOC: JER 12:59 → JERBED 20:11 → OBSVTOIN 21:14 → JERBED 02-08 08:07 → J5S 02-08 16:20
PROVIDERS: ADMIT Internal Medicine; ATTEND Hospitalist
DX: K80.50 Calculus of bile duct without cholangitis or cholecystitis without obstruction (principal); K21.9 Gastro-esophageal reflux disease without esophagitis; E66.9 Obesity, unspecified; Z68.33 Body mass index [BMI] 33.0-33.9, adult; R10.9 Unspecified abdominal pain; R74.8 Abnormal levels of other serum enzymes; K83.8 Other specified diseases of biliary tract
CPT/HCPCS: 36415; 71045-TC-FY; 74177-TC; 74181-TC; 76830-TC; 80053; 80076; 81003; 83690; 83735; 84100; 84703; 85025; 85027; 85610; 85730; 86850; 86900; 86901; 87040; 87086; 93005; 93010; 97116-GP; 97161-GP; 99285-25; G0378; J7030

== ENCOUNTER 2018-03-06 12:21 | Day surgery (SDC) | payer SELFPAY ==
[2018-03-06 13:20] VITALS: TEMP 98; BMI 32.5
[2018-03-06] MEDS ORDERED: PROPOFOL 20 ML ONE (14:18)
--- NOTE | 2018-03-06 14:37 | PROC ---
Endoscopy Procedure Endoscopy procedure completed. Please see scanned procedure report.
[2018-03-06 15:16] VITALS: BP 114/58; PULSE 73
--- NOTE | 2018-03-08 16:09 | PATH ---
Surgical Pathology Report Patient Name: CHARU RATLIFF [facility]. Rec. #: [id number] /Age/Gender: 1970 (Age: 47) / F Account: [id number] Location: U-ENDOSCOPY Taken: 03/06/2018 Received: 03/07/2018 Reported: 03/08/2018 Physicians: Eriberto Alcantar M.D. Specimen(s) Received A: BX SECOND PORTION DUODENUM B: BX ANTRUM AND BODY Clinical History GERD, gastritis Postoperative diagnosis: Same Final Diagnosis A. SECOND PORTION DUODENUM, BIOPSY: DUODENAL MUCOSA WITH NO DIAGNOSTIC ABNORMALITIES. B. GASTRIC ANTRUM AND BODY, BIOPSY: GASTRIC MUCOSA WITH REACTIVE GASTROPATHY. IMMUNOSTAIN IS NEGATIVE FOR H. PYLORI ORGANISMS. Electronically Signed Juaquin Nieto M.D. Gross Description A. Received in formalin, labeled "biopsy second portion of duodenum" are 2 bolivar, irregular portions of soft tissue measuring 0.3 and 0.4 cm. in greatest dimension. The specimens are submitted in toto in one cassette. B. Received in formalin, labeled "biopsy antrum and body" is a bolivar, irregular portion of soft tissue measuring 0.4 cm. in greatest dimension. The specimen is submitted in toto in one cassette. 03/07/201803/07/2018
== END 2018-03-06 15:22 | disposition home or self-care (01) ==
LOC: JASU-ENDO 12:21
PROVIDERS: ATTEND Internal Medicine Gastroenterology
PROC: 0DB68ZX Excision of Stomach, Via Natural or Artificial Opening Endoscopic, Diagnostic (ICD-10-PCS; 2018-03-06)
PROC: 0DB98ZX Excision of Duodenum, Via Natural or Artificial Opening Endoscopic, Diagnostic (ICD-10-PCS; principal; 2018-03-06 14:00)
DX: R10.13 Epigastric pain (principal)
CPT/HCPCS: 84703; 88305-TC; 88342-TC